=== PATIENT | female | born 1965 | race Caucasian/White ===

== ENCOUNTER 2016-07-06 10:39 | Emergency (ER) | payer OTHER ==
[~2016-07-06] VITALS: Ht 170.2 cm; Wt 96.1 kg
[~2016-07-06 10:39] MED LIST: MACROBID100 MG PO
[2016-07-06] MEDS ORDERED: TOBRAMYCIN SULFA5 ML BOTH EYES (13:10)
[2016-07-06] MEDS ORDERED: CLEOCIN300 MG PO (13:10)
[2016-07-06 13:24] VITALS: BP 138/65
== END 2016-07-06 13:25 | disposition home or self-care (01) ==
LOC: EME 10:39
DX: L03.213 Periorbital cellulitis (principal)
CPT/HCPCS: 70481; 99281; 99284; J7030

== ENCOUNTER 2016-12-22 04:24 | Emergency (ER) | payer OTHER ==
[~2016-12-22] VITALS: Ht 170.2 cm; Wt 95.1 kg
[~2016-12-22 04:24] MED LIST changes: +CLEOCIN300 MG PO; +TOBRAMYCIN SULFA5 ML BOTH EYES
[2016-12-22 05:32] LABS: EOSINOPHIL (%) 4.3 % (0-5); EOSINOPHIL COUNT 0.3 K/uL (0-0.3); HEMATOCRIT 35.5 % (36.0-46.0); IMMATURE GRANULOCYTE (%) 0.5 % (0.0-0.7); INSTRUMENT ABS NEUTROPHIL CT 5.1 K/uL; LYMPHOCYTE COUNT 1.4 K/uL (1.0-2.8); MCH 28.2 PG (29.0-34.0); MCHC 32.7 G/DL (30.0-36.0); MCV 86.4 FL (83-99); MEAN PLAT.VOLUME 9.7 uM^3 (9.5-12.4); MONOCYTE (%) 8.8 % (3-12); MONOCYTE COUNT 0.7 K/uL (0-0.8); NEUTROPHIL (%) 67.8 % (45-76); NEUTROPHIL COUNT 5.1 K/uL (1.8-6.4); PLATELET COUNT 277 K/uL (156-360); RBC DIS.WIDTH-CV 12.7 % (11.8-14.6); RBC DIS.WIDTH-SD 40.2 % (39-53); RED BLOOD COUNT 4.11 M/uL (3.80-5.20); WHITE BLOOD COUNT 7.5 K/uL (4.1-10.2)
[2016-12-22 05:38] LABS: CHLORIDE 105 mEq/L (99-109); POTASSIUM 3.8 mEq/L (3.7-5.4); SODIUM 140 mEq/L (136-147)
[2016-12-22 05:40] LABS: GLUCOSE 106 mg/dL (70-99)
[2016-12-22 05:41] LABS: ANION GAP 10 MEQ/L (2-14)
[2016-12-22 05:44] LABS: GFR ESTIMATE (CALCULATED) > 59 mL/min/
[2016-12-22 05:45] LABS: UREA NITROGEN (BUN) 12 mg/dL (9-23)
[2016-12-22] MEDS ORDERED: ULTRAM50 MG PO (06:39)
[2016-12-22 06:57] VITALS: BP 140/78
[2016-12-22 06:57] LABS: ERTH.SED.RATE 31 MM/HR (0-30)
== END 2016-12-22 06:59 | disposition home or self-care (01) ==
LOC: EME 04:24
PROVIDERS: Physician Assistant
DX: G50.0 Trigeminal neuralgia (principal); D86.9 Sarcoidosis, unspecified; Z88.2 Allergy status to sulfonamides
CPT/HCPCS: 70487; 80048; 85025; 85651; 99281; 99285; J1885; J7030

== ENCOUNTER → 2017-02-13 | Outpatient (CLI) | payer OTHER ==
[~2017-02-13] MED LIST changes: +ULTRAM50 MG PO
== END | disposition home or self-care (01) ==
LOC: CDC 08:11
DX: Z01.810 Encounter for preprocedural cardiovascular examination (principal); R94.31 Abnormal electrocardiogram [ECG] [EKG]
CPT/HCPCS: 93000